=== PATIENT | male | born 1960 | race African-American/Black ===

== ENCOUNTER → 2021-01-13 | Emergency (ER) | payer OTHER ==
[~2021-01-13] VITALS: Ht 157.5 cm; Wt 72.6 kg
[~2021-01-13] MED LIST: LISINOPRIL10 MG PO
[2021-01-13 09:18] VITALS: BP 211/114
== END ==
LOC: ER 09:17
DX: Z01.00 Encounter for examination of eyes and vision without abnormal findings (principal); Z53.21 Procedure and treatment not carried out due to patient leaving prior to being seen by health care provider